=== PATIENT | female | born 1960 | race Caucasian/White ===

== ENCOUNTER 2020-03-18 18:35 | Emergency (ER) | payer BC ==
[2020-03-18 19:00] VITALS: TEMP 98.3
--- NOTE | 2020-03-18 19:33 | XR ---
EXAMINATION TYPE: XR Hip LT and AP Pelvis DATE OF EXAM: 03/18/2020 COMPARISON: NONE HISTORY: Fall. Pain. TECHNIQUE: 3 views FINDINGS: There is an acute impacted subcapital fracture left femur. There is no dislocation. Pelvic ring is intact. IMPRESSION: Subcapital fracture left femur.
--- NOTE | 2020-03-18 19:38 | XR ---
EXAMINATION TYPE: XR chest 1V DATE OF EXAM: 03/18/2020 COMPARISON: NONE HISTORY: Fall. Pain. TECHNIQUE: FINDINGS: Heart is normal. Lungs are clear of infiltrate. There is no pleural effusion. There are no hilar masses. Bony thorax appears intact. IMPRESSION: No active cardiopulmonary disease. Normal heart.
--- NOTE | 2020-03-18 19:49 | ED ---
General Adult HPI - General Chief complaint: Fall Stated complaint: Fall, L hip pain Time Seen by Provider: 03/18/20 18:36 Source: patient, EMS, RN notes reviewed Mode of arrival: EMS Limitations: no limitations - History of Present Illness Initial comments: Patient is a 59-year-old female without any significant past medical history presenting to the emergency department for left hip pain. Patient states [place] when she slipped and fell onto the left hip. Patient was unable to ambulate. Patient was brought to the emergency department by EMS. She had received 20 mg of morphine in route. Patient did not hit her head. She is not on blood thinners. She denies any other pain or injuries.Patient has no other complaints at this time including shortness of breath, chest pain, abdominal pain, nausea or vomiting, headache, or visual changes. - Related Data Home Medications Medication Instructions Recorded Confirmed No Known Home Medications 03/18/20 03/18/20 Allergies Allergy/AdvReac Type Severity Reaction Status Date / Time pneumococcal vaccine Allergy Rash/Hives Verified 03/18/20 20:09 Review of Systems ROS Statement: Those systems with pertinent positive or pertinent negative responses have been documented in the HPI. ROS Other: All systems not noted in ROS Statement are negative. Past Medical History Additional Past Medical History / Comment(s): migraines History of Any Multi-Drug Resistant Organisms: None Reported Past Surgical History: Adenoidectomy, Section, Tonsillectomy Past Psychological History: No Psychological Hx Reported Smoking Status: Never smoker Past Alcohol Use History: Occasional Past Drug Use History: None Reported General Exam Limitations: no limitations General appearance: alert, in no apparent distress Head exam: Present: atraumatic, normocephalic, normal inspection Eye exam: Present: normal appearance, PERRL, EOMI. Absent: scleral icterus, conjunctival injection, periorbital swelling ENT exam: Present: normal exam, mucous membranes moist Neck exam: Present: normal inspection. Absent: tenderness, meningismus, lymphadenopathy Respiratory exam: Present: normal lung sounds bilaterally. Absent: respiratory distress, wheezes, rales, rhonchi, stridor Cardiovascular Exam: Present: regular rate, normal rhythm, normal heart sounds. Absent: systolic murmur, diastolic murmur, rubs, gallop, clicks Extremities exam: Present: normal capillary refill (capillary refill less than 2 seconds, DP pulse 2+ in the left lower extremity.), other (skin exam is normal left lower extremity.). Absent: full ROM (patient unable to move left lower extremity.) Course Vital Signs 03/18/20 18:40 Temperature 98.3 F Pulse Rate 90 Respiratory 20 Rate Blood Pressure 133/76 O2 Sat by Pulse 99 Oximetry EKG Findings - EKG Comments: EKG Findings:: normal sinus rhythm, ventricular rate 87, FL interval 160, QTC 452 Medical Decision Making - Medical Decision Making patient presented with EMS. She was given pain medication in route to the emergency room. Neurovascular status intact in the left leg however patient is unable to move the left hip secondary to pain. Skin is intact.x-ray of the left hip shows a left subcapital femur fracture. Patientis from [place] and is requesting transport to [facility] to see her already established orthopedic physician Dr. Aydin Ceja. I discussed this case with Dr. Silva at [facility] emergency room and he did accept this transfer. Disposition Clinical Impression: Hip fracture Disposition: OTHER INSTITUTION NOT DEFINED Is patient prescribed a controlled substance at d/c from ED?: No Referrals: Nonstaff,Physician [Primary Care Provider] - 1-2 days Time of Disposition: 19:49 - Out of Hospital Transfer - Req. Specs Out of Hospital Transfer - Requested Specifics: Other Emergency Center ([facility])
[2020-03-18] MEDS ORDERED: HYDROmorphone 0.5 MG/0.5 ML SYRINGE IVP STA (20:27)
[2020-03-18 20:33] VITALS: BP 139/75; PULSE 83; RESP 16
== END 2020-03-18 20:41 | disposition other institution (70) ==
LOC: EC 18:35
DX: S72.012A Unspecified intracapsular fracture of left femur, initial encounter for closed fracture (principal); Z88.7 Allergy status to serum and vaccine; W01.0XXA Fall on same level from slipping, tripping and stumbling without subsequent striking against object, initial encounter; Y93.01 Activity, walking, marching and hiking; Y92.89 Other specified places as the place of occurrence of the external cause
CPT/HCPCS: 93005; 73502; 71045; 99285; 96374; J1170